=== PATIENT | female | born 1965 | race Caucasian/White ===

== ENCOUNTER 2022-12-20 12:57 | Emergency (ER) | payer OTHER ==
[~2022-12-20] VITALS: Ht 162.6 cm; Wt 134.3 kg
[2022-12-20 15:21] VITALS: BP 158/89
[2022-12-20] MEDS ORDERED: LIDOP TP ×3 (15:49→16:09)
== END 2022-12-20 16:20 | disposition home or self-care (01) ==
LOC: EDH 12:57
DX: M25.561 Pain in right knee (principal); M79.604 Pain in right leg; M79.651 Pain in right thigh; M25.552 Pain in left hip; M79.642 Pain in left hand; F41.9 Anxiety disorder, unspecified; E03.9 Hypothyroidism, unspecified; J45.909 Unspecified asthma, uncomplicated; Z90.49 Acquired absence of other specified parts of digestive tract; Z98.890 Other specified postprocedural states; Z88.1 Allergy status to other antibiotic agents; Z88.5 Allergy status to narcotic agent; Z88.8 Allergy status to other drugs, medicaments and biological substances
CPT/HCPCS: 73130; 73503; 73562; 73590